=== PATIENT | female | born 1960 | race African-American/Black ===

== ENCOUNTER 2017-04-25 05:20 | Emergency (ER) | payer OTHER, MEDICAID ==
[~2017-04-25] VITALS: Ht 175.3 cm; Wt 102.0 kg
[2017-04-25] MEDS ORDERED: IPRATROPIUM BROMIDE (0.02%) 0.5MG/2.5ML NEB HHN STA (06:27)
[2017-04-25] MEDS ORDERED: METHYLPREDNISOLONE SOD SUCC 125 MG/2 ML VIAL IV STA (06:27)
[2017-04-25] MEDS: ALBUTEROL (0.083%) 2.5MG/3ML NEB HHN SCH ×4 (06:41→09:49)
[2017-04-25 11:28] VITALS: BP 137/70
== END 2017-04-25 11:29 | disposition home or self-care (01) ==
LOC: ER 05:30
DX: J45.901 Unspecified asthma with (acute) exacerbation (principal); I10 Essential (primary) hypertension; E11.9 Type 2 diabetes mellitus without complications; Z88.0 Allergy status to penicillin; Z98.890 Other specified postprocedural states; Z88.8 Allergy status to other drugs, medicaments and biological substances
CPT/HCPCS: 94640; 94644; 96374; 99285; J2930; J7611